=== PATIENT | female | born 1965 | race Caucasian/White ===

== ENCOUNTER 2019-03-23 09:48 | Emergency (ER) | payer BC, MEDICARE ==
[2019-03-23] MEDS ORDERED: Morphine 4 MG/ML VIAL ONE (10:16)
[2019-03-23] MEDS ORDERED: Sodium Chloride 0.9% 1,000 ML ONE (10:16)
[2019-03-23] MEDS ORDERED: Crotalidae Polyvalent Antivenin 1 GM VIAL ONE (10:16)
[2019-03-23] MEDS ORDERED: Sodium Chloride 0.9% 250 ML 250 ML ONE (10:18)
[2019-03-23 10:21] LABS: #Basophils 0.1 thou/uL (0.0-0.2); #Eosinphils 0.1 thou/uL (0.0-0.7); #Lymphocytes 1.7 thou/uL (1.20-3.40); #Monocytes 0.5 thou/uL (0.11-0.59); #Neutrophils 4.6 thou/uL (1.40-6.50); %Basophils 1.4 % (0.0-1.0); %Lymphocytes 23.9 % (21.0-51.0); %Monocytes 6.5 % (0.0-10.0); %Neutrophils 66.2 % (42.0-75.0); Mean Corpuscular HGB CONC 32.4 g/dL (32.0-36.0); Mean Corpuscular Hemoglobin 27.7 pg (27.0-31.0); Mean Corpuscular Volume 85.4 fL (78.0-98.0); Mean Platelet Volume 6.7 fL (7.4-10.4); Platelet Count 245 thou/uL (130-400); RBC Distribution Width 12.4 % (11.5-14.5); Red Blood Cell (RBC) Count 4.69 mill/uL (4.20-5.40)
[2019-03-23 10:29] LABS: INR-International Normal Ratio 0.9; Prothrombin Time 12.6 SEC (12.0-14.7)
[2019-03-23 10:38] LABS: ALT (SGPT) 26 U/L (8-55); AST (SGOT) 25 U/L (5-34); Alkaline Phosphatase 91 U/L (40-150); Anion Gap 13 mmol/L (10-20); BUN (Urea Nitrogen) 15 mg/dL (9.8-20.1); Bilirubin, Total 0.8 mg/dL (0.2-1.2); Calc. Creatinine Clearance 0 mL/min (70-130); Carbon Dioxide 26 mmol/L (22-29); Chloride 105 mmol/L (98-107); Estimated GFR-MDRD 62; Globulin 2.8 g/dL (2.4-3.5); Glucose 120 mg/dL (70-105); Potassium 3.1 mmol/L (3.5-5.1); Protein, Total 6.8 g/dL (6.0-8.3); Sodium 141 mmol/L (136-145)
== END 2019-03-23 11:11 | disposition short-term general hospital (02) ==
LOC: MADERS 09:48
DX: T63.001A Toxic effect of unspecified snake venom, accidental (unintentional), initial encounter (principal); F32.9 Major depressive disorder, single episode, unspecified; F41.9 Anxiety disorder, unspecified
CPT/HCPCS: 80053; 82550; 85025; 85384; 85610; 96374; 96375; J0840; J2270; J7050